=== PATIENT | female | born 1945 | race Hispanic/Latino ===

== ENCOUNTER → 2023-04-16 | Outpatient (CLI) | payer OTHER ==
[~2023-04-16] MED LIST: AEC81 PO; ALEN70TA80 PO; AMLO-258 PO; ATOR40TA69 PO; CLOP-31 PO; LEVO125C4 PO; LEVO750T39 PO; METF-444 PO; METO100T14 PO
[2023-04-16] MEDS: REGADENOSON 0.4 MG/5 ML PF SYG IVP ONE (15:47)
== END | disposition home or self-care (01) ==
LOC: EDBD 04-06 08:10 → SHCH 09:08 → EDBD 09:20
PROVIDERS: ATTEND Internal Medicine
DX: I21.4 Non-ST elevation (NSTEMI) myocardial infarction (principal); R94.39 Abnormal result of other cardiovascular function study
CPT/HCPCS: 78452; 93017; J2785; A9500 ×2; 96374

== ENCOUNTER → 2023-06-25 | Outpatient (CLI) | payer OTHER | END | disposition home or self-care (01) | LOC: RAH 11:27 | PROVIDERS: ATTEND Family Medicine | DX: D25.9 Leiomyoma of uterus, unspecified (principal); R19.00 Intra-abdominal and pelvic swelling, mass and lump, unspecified site | CPT/HCPCS: 76856 ==